=== PATIENT | female | born 1955 | race African-American/Black ===

== ENCOUNTER 2019-01-10 13:45 | Observation (INO) | payer OTHER ==
[2019-01-10] MEDS ORDERED: IPRATROPIUM/ALBUTEROL 0.5-2.5 MG/3 ML AMPUL NEB ONE (14:23)
[2019-01-10 14:27] LABS: ABSOLUTE BASOPHILS # (AUTO) 0.1 10^3/uL (0.0-0.2); ABSOLUTE EOSINOPHILS # (AUTO) 0.1 10^3/uL (0.0-0.6); ABSOLUTE LYMPHOCYTES (AUTO) 2.6 10^3/uL (0.5-4.7); ABSOLUTE MONOCYTES (AUTO) 0.7 10^3/uL (0.1-1.4); ABSOLUTE NEUT (AUTO) 5.4 10^3/uL (1.7-8.2); EOSINOPHILS % (AUTO) 0.8 % (0-6); HEMATOCRIT 50.1 % (36.0-47.0); HEMOGLOBIN 15.9 g/dL (12.0-15.5); LYMPHOCYTES % (AUTO) 29.3 % (13-45); MEAN CORPUSCULAR HEMOGLOBIN 28.6 pg (27.0-33.4); MEAN CORPUSCULAR HGB CONC 31.8 g/dL (32.0-36.0); MEAN CORPUSCULAR VOLUME 90 fl (80-97); MONOCYTES % (AUTO) 7.5 % (3-13); PLATELET COUNT 206 10^3/uL (150-450); RED BLOOD COUNT 5.57 10^6/uL (3.72-5.28); RED CELL DISTRIBUTION WIDTH 15.4 % (11.5-14.0); SEGMENTED NEUTROPHILS % (AUTO) 61.4 % (42-78); TOTAL CELLS COUNTED % (AUTO) 100 %; WHITE BLOOD COUNT 8.8 10^3/uL (4.0-10.5)
[2019-01-10 14:46] LABS: INTERNATIONAL RATION (INR) 1.18; PROTHROMBIN TIME 15.1 SEC (11.4-15.4)
--- NOTE | 2019-01-10 15:31 | RADIOLOGY REPORT (SQ) ---
EXAM DESCRIPTION: CHEST SINGLE VIEW COMPLETED DATE/TIME: 01/10/2019 2:44 pm REASON FOR STUDY: SOB COMPARISON: None. EXAM PARAMETERS: NUMBER OF VIEWS: One view. TECHNIQUE: Single frontal radiographic view of the chest acquired. RADIATION DOSE: NA LIMITATIONS: None. FINDINGS: LUNGS AND PLEURA: Asymmetric alveolar opacities in the right base. There is no sizable pl eural effusion, consolidation or pneumothorax. MEDIASTINUM AND HILAR STRUCTURES: No mediastinal or hilar contour abnormality. HEART AND VASCULAR STRUCTURES: The cardiac silhouette is enlarged. The pulmonary vasculature is with in normal limits given the low inspiratory lung volumes. BONES: No acute findings. HARDWARE: None in the chest. OTHER: No other finding. IMPRESSION: 1. Asymmetric alveolar opacities in the right base. Correlate with clinical findings to exclude a right lower lobe pneumonia. 2. Cardiomegaly. TECHNICAL DOCUMENTATION: JOB ID: [id number] [employer]- All Rights Reserved Reading location - IP/workstation name: [email or web address]
[2019-01-10 15:58] LABS: ALBUMIN 1.6 g/dL (3.5-5.0); ALKALINE PHOSPHATASE 29 U/L (38-126); ASPARTATE AMINO TRANSFERASE 20 U/L (14-36); BILIRUBIN,DIRECT 0.1 mg/dL (0.0-0.4); BILIRUBIN,TOTAL 0.9 mg/dL (0.2-1.3); BLOOD UREA NITROGEN 15 mg/dL (7-20); CREATINE KINASE 175 U/L (30-135); GLUCOSE 91 mg/dL (75-110); TOTAL PROTEIN 3.5 g/dL (6.3-8.2)
[2019-01-10 16:09] LABS: CARBON DIOXIDE 15 mmol/L (22-30); CHLORIDE 124 mmol/L (98-107)
[2019-01-10 16:10] LABS: CREATINE KINASE MB 1.53 ng/mL (<4.55); NT PRO BNP 7670 pg/mL (5-900)
[2019-01-10 16:11] LABS: TROPONIN I < 0.012 ng/mL
[2019-01-10 16:28] LABS: CALCIUM 4.6 mg/dL (8.4-10.2); POTASSIUM 2.2 mmol/L (3.6-5.0)
[2019-01-10 16:29] LABS: ANION GAP 4 (5-19)
--- NOTE | 2019-01-10 16:30 | ER Document Report ---
ED General - General Chief Complaint: Shortness Of Breath Stated Complaint: SHORTNESS OF BREATH Time Seen by Provider: 01/10/19 13:58 Primary Care Provider: SHAD CASTELLON MD [Primary Care Provider] - Follow up as needed TRAVEL OUTSIDE OF THE [place] IN LAST 30 DAYS: No - HPI Notes: Patient is a very difficult historian. I asked her initially how long she is been short of breath. She states to me that it is been "since ." She denies any coughing. She states she is been short of breath for some time, we really will not qualify this further for me. She also states she has swelling in her legs. I asked her to qualify that for me. She goes on to tell me that she believes that some of her swelling might be from interactions from her medications. I pull out her bag of medications, but the patient admits that she is really not taking all of them. She states that her physician, who was in the [place] in [place], told her that once her cholesterol was down, she could stop her atorvastatin. She states she is only intermittently taking most of her medications. She does state that she feels weak all over. - Related Data Allergies/Adverse Reactions: No Known Allergies Allergy (Unverified 01/10/19 14:00) Past Medical History - General Information source: Patient - Social History Smoking Status: Current Every Day Smoker Chew tobacco use (# tins/day): No Frequency of alcohol use: None Drug Abuse: None Family History: Reviewed & Not Pertinent Patient has suicidal ideation: No Patient has homicidal ideation: No - Past Medical History Cardiac Medical History: Reports: Hx Hypercholesterolemia, Hx Hypertension Endocrine Medical History: Reports: Hx Diabetes Mellitus Type 2 Review of Systems - Review of Systems Constitutional: See HPI EENT: No symptoms reported Cardiovascular: See HPI Respiratory: See HPI Gastrointestinal: No symptoms reported Genitourinary: No symptoms reported Female Genitourinary: No symptoms reported Musculoskeletal: See HPI Skin: No symptoms reported Neurological/Psychological: No symptoms reported Physical Exam - Vital signs Vitals: Temp Resp BP Pulse Ox 97.6 F 30 H 134/111 H 94 01/10/19 14:07 01/10/19 14:07 01/10/19 14:07 01/10/19 14:07 - Notes Notes: This is a 63-year-old female who appears her stated age, no acute distress. She exhibits almost stream of consciousness thought, is difficult to pin down in regards to her history. Vital signs reviewed, please refer to chart. Head is normocephalic, atraumatic. Pupils equal round, reactive to light. Neck is supple without meningismus. Heart is regular rate and rhythm. Lungs are clear to auscultation bilaterally. Abdomen is soft, nontender, normoactive bowel sounds throughout. Extremities without cyanosis, clubbing. He does have 2+ pitting pretibial edema bilaterally. Posterior calves are nontender. Peripheral pulses are equal. Skin is warm and dry. Patient is awake, alert, neurological exam is nonfocal. Course - Re-evaluation Re-evalutation: 01/10/19 16:52 Patient presents emergency department for evaluation. She is an extremely difficult historian. She comes in complaining of dyspnea with exertion, shortness of breath with laying flat, as well as peripheral edema. I went through her medicine bag, she admits that she takes some of these medications, some of them she does not. While the medicine she supposed to take daily as torsemide. There is no torsemide and there. Given her laboratory investigations, which revealed a marked hypokalemia, a marked hypocalcemia, and a non-anion gap metabolic acidosis, my suspicion is that she is over taking her torsemide. I gave her oral potassium, potassium riders. Metabolic panel is being repeated, magnesium is being ordered. I am not inclined to treat her congestive heart failure with Lasix at this time, as I do not want to worsen her electrolyte abnormalities. She was mildly hypoxic on arrival for EMS, but only 89%. I spoke with Dr. Damian, who agrees this patient needs admission. He will pass this admission along to Dr. Marquez. - Vital Signs Vital signs: Temp Pulse Resp BP Pulse Ox 97.6 F 30 H 134/111 H 94 01/10/19 14:07 01/10/19 14:07 01/10/19 14:07 01/10/19 14:07 - Laboratory Result Diagrams: 01/10/19 14:03 01/10/19 15:23 Laboratory results interpreted by me: 01/10/19 01/10/19 01/10/19 14:03 15:23 15:23 RBC 5.57 H Hgb 15.9 H Hct 50.1 H MCHC 31.8 L RDW 15.4 H Potassium 2.2 L* Chloride 124 H Carbon Dioxide 15 L Anion Gap 4 L Creatinine 0.46 L Calcium 4.6 L* Alkaline Phosphatase 29 L Creatine Kinase 175 H NT-Pro-B Natriuret Pep 7670 H Total Protein 3.5 L Albumin 1.6 L - Diagnostic Test Radiology reviewed: Reports reviewed Radiology results interpreted by me: 01/10/19 16:53 Chest X-Ray 01/10/19 13:50 IMPRESSION: 1. Asymmetric alveolar opacities in the right base. Correlate with clinical findings to exclude a right lower lobe pneumonia. 2. Cardiomegaly. - EKG Interpretation by Me Additional EKG results interpreted by me: 01/10/19 16:53 Sinus mechanism with a rate of 93 bpm, PVC noted. Left bundle branch block. No old studies available for comparison. Discharge - Discharge Clinical Impression: Hypokalemia, Hypocalcemia, Metabolic acidosis Condition: Stable Disposition: ADMITTED INPATIENT Admitting Provider: Alma (Hospitalist) Unit Admitted: IMCU Referrals: SHAD CASTELLON MD [Primary Care Provider] - Follow up as needed
[2019-01-10] MEDS ORDERED: CALCIUM GLUCONATE 1000 MG/10 ML INJ IV ONE (16:48)
[2019-01-10] MEDS ORDERED: POTASSIUM CHLORIDE 10 MEQ CAPSULE.ER PO ONE (16:48)
[2019-01-10] MEDS ORDERED: POTASSI CL 20 MEQ/50 ML RIDER 20 MEQ/50 ML RTUPB IV SCH (17:00)
[2019-01-10 17:19] LABS: ALBUMIN 3.5 g/dL (3.5-5.0); ALKALINE PHOSPHATASE 74 U/L (38-126); ASPARTATE AMINO TRANSFERASE 34 U/L (14-36); BILIRUBIN,DIRECT 0.1 mg/dL (0.0-0.4); BILIRUBIN,TOTAL 1.7 mg/dL (0.2-1.3); BLOOD UREA NITROGEN 25 mg/dL (7-20); CALCIUM 9.3 mg/dL (8.4-10.2); CHLORIDE 106 mmol/L (98-107); GLUCOSE 131 mg/dL (75-110); TOTAL PROTEIN 6.5 g/dL (6.3-8.2)
[2019-01-10 17:38] LABS: ANION GAP 10 (5-19)
[2019-01-10 17:39] LABS: CARBON DIOXIDE 25 mmol/L (22-30); POTASSIUM 4.2 mmol/L (3.6-5.0)
[2019-01-10] MEDS ORDERED: ACETAMINOPHEN 325 MG TABLET PO PRN (17:42)
[2019-01-10] MEDS ORDERED: ONDANSETRON HCL INJ/PF 4 MG/2 ML SDV IV PRN (17:42)
[2019-01-10] MEDS ORDERED: CEFTRIAXONE 2 GM/D5W RTU 2 GM/50 ML RTUPB IV ONE (17:51)
[2019-01-10] MEDS ORDERED: DEXTROSE 50%-WATER 25 GM/50 ML DISP.SYRIN IV PRN ×2 (17:52)
[2019-01-10] MEDS ORDERED: DEXTROSE 40% GEL 15 GM TUBE PO PRN ×2 (17:52)
[2019-01-10] MEDS ORDERED: GLUCAGON,HUMAN RECOMB 1 MG INJ IM PRN (17:52)
[2019-01-10] MEDS ORDERED: HYDRALAZINE HCL INJ/PF 20 MG/1 ML SDV IV PRN (17:55)
[2019-01-10] MEDS ORDERED: FUROSEMIDE INJ/PF 40 MG/4 ML SDV IV ONE (17:56)
[2019-01-10] MEDS ORDERED: MAGNESIUM SULFATE/D5W 1 GM/100 ML RTUPB IV ONE ×2 (17:56→21:23)
--- NOTE | 2019-01-10 18:15 | EKG REPORT ---
SEVERITY:- ABNORMAL ECG - SINUS RHYTHM VENTRICULAR PREMATURE COMPLEX RASHEED, CONSIDER BIATRIAL ABNORMALITIES LEFT ANTERIOR FASCICULAR BLOCK LVH. : Confirmed by: Kimani Sullivan MD 10-Jan-2019 18:14:48
--- NOTE | 2019-01-10 18:49 | PDOC H&P ---
History of Present Illness Admission Date/PCP: 01/10/19 18:21 SHAD CASTELLON MD Patient complains of: Shortness of breath for the last few days History of Present Illness: LISA RUFF is a 63 year old female with history of type 2 diabetes mellitus, cardiomyopathy, hypertension came to the emergency room with complaints of increasing shortness of breath. Shortness of breath is not associated with chest pain not associated with cough not associated cold. Denies any nausea vomiting diarrhea or abdominal pain. Patient says she is fasting for the last 4 to 5 days for unknown reasons. Patient states she is compliant with her medications. She was also telling me she flew in from [place] 2 days ago. Agreed to stay in the hospital for further management. Past Medical History Cardiac Medical History: Reports: Congestive Heart Failure, Hyperlipidema, Hypertension Endocrine Medical History: Reports: Diabetes Mellitus Type 2 Past Surgical History Past Surgical History: Reports: None Social History Information Source: Patient Smoking Status: Current Every Day Smoker Electronic Cigarette use?: No Frequency of Alcohol Use: Occasional Hx Recreational Drug Use: No Hx Prescription Drug Abuse: No - Advance Directive Resuscitation Status: Full Code Family History Family History: Reviewed & Not Pertinent Parental Family History Reviewed: Yes - Diet with history of artery disease and hypertension. Children Family History Reviewed: Yes Sibling(s) Family History Reviewed.: Yes Medication/Allergy Allergies/Adverse Reactions: No Known Allergies Allergy (Unverified 01/10/19 14:00) Review of Systems Constitutional: ABSENT: fatigue, fever(s), headache(s), weakness Eyes: ABSENT: visual disturbances Ears: ABSENT: hearing changes Nose, Mouth, and Throat: ABSENT: sore throat Cardiovascular: PRESENT: dyspnea on exertion, edema Respiratory: PRESENT: dyspnea. ABSENT: cough, sputum Gastrointestinal: ABSENT: abdominal pain, constipation, diarrhea, hematemesis, hematochezia, nausea, vomiting Genitourinary: ABSENT: dysuria, hematuria Musculoskeletal: ABSENT: joint swelling Integumentary: ABSENT: rash, wounds Neurological: PRESENT: as per HPI Psychiatric: ABSENT: anxiety, depression, homidical ideation, suicidal ideation Endocrine: ABSENT: cold intolerance, heat intolerance, polydipsia, polyuria Physical Exam Vital Signs: Temp Pulse Resp BP Pulse Ox 97.6 F 30 H 134/111 H 94 01/10/19 14:07 01/10/19 14:07 01/10/19 14:07 01/10/19 14:07 Intake & Output 01/09/19 01/10/19 01/11/19 06:59 06:59 06:59 Weight 102 kg General appearance: PRESENT: morbidly obese, other - In moderate distress. Head exam: PRESENT: atraumatic Eye exam: PRESENT: PERRLA Mouth exam: PRESENT: neck supple Teeth exam: PRESENT: poor dentation Neck exam: PRESENT: JVD Respiratory exam: PRESENT: decreased breath sounds Cardiovascular exam: PRESENT: tachycardia GI/Abdominal exam: PRESENT: normal bowel sounds, soft. ABSENT: distended, guarding, mass, organolmegaly, rebound, tenderness Rectal exam: PRESENT: deferred Extremities exam: PRESENT: pedal edema Musculoskeletal exam: PRESENT: ambulatory Neurological exam: PRESENT: alert, awake, oriented to person, oriented to place, oriented to time, oriented to situation, CN II-XII grossly intact. ABSENT: motor sensory deficit Psychiatric exam: PRESENT: anxious Results Laboratory Results: 01/10/19 14:03 01/10/19 16:43 01/10/19 01/10/19 01/10/19 14:03 14:03 15:23 WBC 8.8 RBC 5.57 H Hgb 15.9 H Hct 50.1 H MCV 90 MCH 28.6 MCHC 31.8 L RDW 15.4 H Plt Count 206 Seg Neutrophils % 61.4 Sodium Cancelled 142.9 Potassium Cancelled 2.2 L* Chloride Cancelled 124 H Carbon Dioxide Cancelled 15 L Anion Gap Cancelled 4 L BUN Cancelled 15 Creatinine Cancelled 0.46 L Est GFR ( Amer) Cancelled > 60 Est GFR (Non-Af Amer) Cancelled Glucose Cancelled 91 Calcium Cancelled 4.6 L* Magnesium Total Bilirubin Cancelled 0.9 AST Cancelled 20 Alkaline Phosphatase Cancelled 29 L Total Protein Cancelled 3.5 L Albumin Cancelled 1.6 L 01/10/19 16:43 WBC RBC Hgb Hct MCV MCH MCHC RDW Plt Count Seg Neutrophils % Sodium 140.8 Potassium 4.2 D Chloride 106 Carbon Dioxide 25 D Anion Gap 10 BUN 25 H Creatinine 0.90 Est GFR ( Amer) > 60 Est GFR (Non-Af Amer) Glucose 131 H Calcium 9.3 Magnesium 1.6 Total Bilirubin 1.7 H AST 34 Alkaline Phosphatase 74 Total Protein 6.5 Albumin 3.5 01/10/19 01/10/19 01/10/19 14:00 14:00 15:23 Creatine Kinase Cancelled 175 H CK-MB (CK-2) Cancelled Troponin I Cancelled NT-Pro-B Natriuret Pep Cancelled 01/10/19 15:23 Creatine Kinase CK-MB (CK-2) 1.53 Troponin I < 0.012 NT-Pro-B Natriuret Pep 7670 H Impressions: Chest X-Ray 01/10/19 13:50 IMPRESSION: 1. Asymmetric alveolar opacities in the right base. Correlate with clinical findings to exclude a right lower lobe pneumonia. 2. Cardiomegaly. 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 Patient also history of congestive heart failure. Plan to put her in IMCU she is a full code. Admitting as inpatient. Blood cultures and urine cultures are requested CT of the chest was requested to get further information about pneumonia and and to rule out pulmonary embolism. At this moment patient is refusing the CT of the chest. GI prophylaxis DVT prophylaxis initiated. Started on insulin sliding scale aCHS. Dietary consult will be requested. Plan to restart her home medications. To give Lasix 40 mg IV 1 dose. PRN BiPAP. Placed on oxygen 2 L nasal cannula. To give Xopenex nebulizations. shortness of breath may be secondary to pneumonia. 2.hypertension Patient might have hypertensive urgency blood pressure is 134/111. Patient s zoeyes she has borderline hypertension. Plan to start her on hydralazine 20 mg IV every 6 PRN for systolic blood pressure more than 160. To give Lasix 40 mg IV 1 dose and restart on torsemide 20 mg p.o. daily. To check the blood pressures every shift. 3.type 2 diabetes mellitus It is giving the history of type 2 diabetes mellitus but she is not on any medications at home. To check hemoglobin A1c in the morning and check blood sugars before meals and at bedtime. Dietary consult will be requested. 4.pneumonia Chest x-ray suggestive of possible right lower lobe pneumonia. Blood cultures are requested started on IV antibiotic therapy. CT of the chest was requested for further information. Patient might have most likely community-acquired pneumonia gram-positive organisms may be responsible. 5.morbid obesity BMI is more than 41, diet exercise weight loss lifestyle modifications are discussed with the patient. Dietary consult will be requested. 6.cardiomyopathy Is given the history of cardiomyopathy chest x-ray shows cardiomegaly she is taking torsemide at home. BNP is elevated more than 7000. Torsemide is was reinitiated to give Lasix 40 mg IV 1 dose. To watch for the fluid overload. My opinion patient might have a chronic systolic heart failure. - Time Time Spent with patient: 25-34 minutes Medications reviewed and adjusted accordingly: Yes Anticipated discharge: Home
[2019-01-10 20:43] LABS: APPEARANCE,URINE SLIGHTLY-CLOUDY; BILIRUBIN,URINE NEGATIVE (NEGATIVE); COLOR,URINE YELLOW; GLUCOSE, URINE NEGATIVE (NEGATIVE); KETONES,URINE NEGATIVE (NEGATIVE); LEUKOCYTE ESTERASE,URINE NEGATIVE (NEGATIVE); NITRITE,URINE NEGATIVE (NEGATIVE); PROTEIN,URINE 100 mg/dL (NEGATIVE); URINE SPECIFIC GRAVITY 1.009; UROBILINOGEN,URINE NEGATIVE mg/dL (<2.0)
--- NOTE | 2019-01-10 21:24 | RADIOLOGY REPORT (SQ) ---
CT CHEST ANGIOGRAPHY WITHOUT THEN WITH IV CONTRAST EXAM DATE: 01/10/2019 12:00 AM CDT HISTORY: Shortness of breath. COMPARISON: None. TECHNIQUE: CT angiogram of the chest with IV contrast. 3-D MIP images were obtained in coronal and sagittal reconstructions. This exam was performed according to our departmental dose-optimization program, which includes automated exposure control, adjustment of the mA and/or kV according to patient size and/or use of iterative reconstruction technique. FINDINGS: No filling defects are seen in the pulmonary trunk or the left and right main pulmonary artery. There is limited evaluation of the segmental branches due to motion artifact. The thyroid gland is normal. No mediastinal or hilar adenopathy. The heart size is mildly enlarged without pericardial effusion. The thoracic aorta is normal caliber. No consolidation, pleural effusion, or pneumothorax is identified. The visualized upper abdomen demonstrates no acute findings. No acute osseous findings are seen. IMPRESSION: No central pulmonary embolism.
[2019-01-10] MEDS: AZITHROMYCIN 500 MG in DEXTROSE 5%-WATER 250 ML IV SCH (23:02)
[2019-01-10] MEDS: INSULIN REG, HUMAN 100 UNIT/ML 3 ML VIAL (PYX) SUBCUT SCH (23:02)
[2019-01-11] MEDS: LEVALBUTEROL HCL NEB 0.63 MG/3 ML AMPUL NEB PRN ×2 (02:37→10:42)
[2019-01-11] MEDS: PANTOPRAZOLE SODIUM 40 MG TABLET.DR PO SCH ×2 (06:11→17:35)
[2019-01-11] MEDS: TORSEMIDE 20 MG TABLET PO SCH (09:35)
[2019-01-11] MEDS: ASPIRIN 325 MG TABLET, ENT COATED PO SCH (09:35)
[2019-01-11] MEDS: INSULIN REG, HUMAN 100 UNIT/ML 3 ML VIAL (PYX) SUBCUT SCH ×4 (09:35→21:19)
[2019-01-11] MEDS: ENOXAPARIN SODIUM INJ 40 MG/0.4 ML DISP.SYRIN SUBCUT SCH (09:35)
[2019-01-11] MEDS: POTASSIUM CHLORIDE 10 MEQ CAPSULE.ER PO SCH (09:35)
[2019-01-11] MEDS: ATORVASTATIN CALCIUM 80 MG TABLET PO SCH (09:35)
[2019-01-11] MEDS: METOPROLOL SUCCINATE 25 MG TAB.SR.24H PO SCH ×2 (09:35→21:11)
[2019-01-11] MEDS ORDERED: LISINOPRIL 10 MG TABLET PO SCH (10:00)
[2019-01-11] MEDS ORDERED: AZITHROMYCIN INJ 500 MG VIAL IV SCH (10:00)
[2019-01-11 11:20] LABS: ABSOLUTE EOSINOPHILS # (AUTO) 0.1 10^3/uL (0.0-0.6); ABSOLUTE MONOCYTES (AUTO) 0.6 10^3/uL (0.1-1.4); ABSOLUTE NEUT (AUTO) 5.9 10^3/uL (1.7-8.2); BASOPHILS % (AUTO) 0.5 % (0-2); EOSINOPHILS % (AUTO) 1.2 % (0-6); HEMATOCRIT 47.2 % (36.0-47.0); HEMOGLOBIN 15.1 g/dL (12.0-15.5); LYMPHOCYTES % (AUTO) 23.4 % (13-45); MEAN CORPUSCULAR HEMOGLOBIN 28.7 pg (27.0-33.4); MEAN CORPUSCULAR VOLUME 90 fl (80-97); MONOCYTES % (AUTO) 6.9 % (3-13); PLATELET COUNT 166 10^3/uL (150-450); RED BLOOD COUNT 5.27 10^6/uL (3.72-5.28); RED CELL DISTRIBUTION WIDTH 14.8 % (11.5-14.0); TOTAL CELLS COUNTED % (AUTO) 100 %; WHITE BLOOD COUNT 8.6 10^3/uL (4.0-10.5)
[2019-01-11 11:26] LABS: INTERNATIONAL RATION (INR) 1.25; PROTHROMBIN TIME 15.8 SEC (11.4-15.4)
[2019-01-11 11:46] LABS: ALBUMIN 3.5 g/dL (3.5-5.0); ALKALINE PHOSPHATASE 80 U/L (38-126); ANION GAP 10 (5-19); ASPARTATE AMINO TRANSFERASE 36 U/L (14-36); BILIRUBIN,DIRECT 0.2 mg/dL (0.0-0.4); BILIRUBIN,TOTAL 0.9 mg/dL (0.2-1.3); BLOOD UREA NITROGEN 28 mg/dL (7-20); CARBON DIOXIDE 26 mmol/L (22-30); CHLORIDE 103 mmol/L (98-107); CHOLESTEROL 112.97 mg/dL (0-200); CREATINE KINASE 285 U/L (30-135); GLUCOSE 201 mg/dL (75-110); POTASSIUM 4.1 mmol/L (3.6-5.0); TOTAL PROTEIN 6.5 g/dL (6.3-8.2); TRIGLYCERIDES 64 mg/dL (<150)
[2019-01-11 11:53] LABS: CREATINE KINASE MB 2.6 ng/mL (<4.55)
[2019-01-11 11:57] LABS: DIRECT LDL 98 mg/dL (<100)
--- NOTE | 2019-01-11 12:00 | PDOC PROGRESS REPORT ---
Subjective Progress Note for:: 01/11/19 Subjective:: 63 year old female with history of type 2 diabetes mellitus, cardiomyopathy, hypertension came to the emergency room with complaints of increasing shortness of breath. Shortness of breath is not associated with chest pain not associated with cough not associated cold. Denies any nausea vomiting diarrhea or abdominal pain. Patient says she is fasting for the last 4 to 5 days for unknown reasons. Patient states she is compliant with her medications. She was also telling me she flew in from [place] 2 days ago. Agreed to stay in the hospital for further management. [id number] female admitted for shortness of breath. Chest x-ray suggestive of possible pneumonia. CT of the chest was done PE is ruled out. No fluid overload is noticed on CT. Patient's pulse ox is this morning 95% on 4 L. Comfortably sleeping in the bed. No acute events in the last 24 hours. Reason For Visit: CHF Physical Exam Vital Signs: Temp Pulse Resp BP Pulse Ox 97.7 F 85 14 125/97 H 97 01/11/19 03:13 01/11/19 10:42 01/11/19 10:42 01/11/19 03:13 01/11/19 10:42 Intake & Output 01/10/19 01/11/19 01/12/19 06:59 06:59 06:59 Intake Total 400 Balance 400 Weight 98.6 kg General appearance: PRESENT: no acute distress, morbidly obese Head exam: PRESENT: atraumatic Eye exam: PRESENT: PERRLA Mouth exam: PRESENT: moist, tongue midline Teeth exam: PRESENT: poor dentation Neck exam: ABSENT: carotid bruit, JVD, lymphadenopathy, thyromegaly Respiratory exam: PRESENT: decreased breath sounds Cardiovascular exam: PRESENT: RRR. ABSENT: diastolic murmur, rubs, systolic murmur GI/Abdominal exam: PRESENT: normal bowel sounds, soft. ABSENT: distended, guarding, mass, organolmegaly, rebound, tenderness Rectal exam: PRESENT: deferred Extremities exam: PRESENT: full ROM. ABSENT: calf tenderness, clubbing, pedal edema Neurological exam: PRESENT: alert, awake, oriented to person, oriented to place, oriented to time, oriented to situation, CN II-XII grossly intact. ABSENT: motor sensory deficit Psychiatric exam: PRESENT: appropriate affect, normal mood. ABSENT: homicidal ideation, suicidal ideation Skin exam: PRESENT: dry, intact, warm. ABSENT: cyanosis, rash Results Laboratory Results: 01/11/19 10:40 01/10/19 01/10/19 01/10/19 14:03 14:03 15:23 WBC 8.8 RBC 5.57 H Hgb 15.9 H Hct 50.1 H MCV 90 MCH 28.6 MCHC 31.8 L RDW 15.4 H Plt Count 206 Seg Neutrophils % 61.4 Sodium Cancelled 142.9 Potassium Cancelled 2.2 L* Chloride Cancelled 124 H Carbon Dioxide Cancelled 15 L Anion Gap Cancelled 4 L BUN Cancelled 15 Creatinine Cancelled 0.46 L Est GFR ( Amer) Cancelled > 60 Est GFR (Non-Af Amer) Cancelled Glucose Cancelled 91 Calcium Cancelled 4.6 L* Magnesium Total Bilirubin Cancelled 0.9 AST Cancelled 20 Alkaline Phosphatase Cancelled 29 L Total Protein Cancelled 3.5 L Albumin Cancelled 1.6 L Urine Color Urine Appearance Urine pH Ur Specific [place] Urine Protein Urine Glucose (UA) Urine Ketones Urine Blood Urine Nitrite Ur Leukocyte Esterase Urine WBC (Auto) Urine RBC (Auto) 01/10/19 01/10/19 01/11/19 16:43 20:20 10:40 WBC 8.6 RBC 5.27 Hgb 15.1 Hct 47.2 H MCV 90 MCH 28.7 MCHC 32.0 RDW 14.8 H Plt Count 166 Seg Neutrophils % 68.0 Sodium 140.8 Potassium 4.2 D Chloride 106 Carbon Dioxide 25 D Anion Gap 10 BUN 25 H Creatinine 0.90 Est GFR ( Amer) > 60 Est GFR (Non-Af Amer) Glucose 131 H Calcium 9.3 Magnesium 1.6 Total Bilirubin 1.7 H AST 34 Alkaline Phosphatase 74 Total Protein 6.5 Albumin 3.5 Urine Color YELLOW Urine Appearance SLIGHTLY-CLOUDY Urine pH 6.0 Ur Specific [place] 1.009 Urine Protein 100 H Urine Glucose (UA) NEGATIVE Urine Ketones NEGATIVE Urine Blood NEGATIVE Urine Nitrite NEGATIVE Ur Leukocyte Esterase NEGATIVE Urine WBC (Auto) 1 Urine RBC (Auto) 0 01/10/19 01/10/19 01/10/19 14:00 14:00 15:23 Creatine Kinase Cancelled 175 H CK-MB (CK-2) Cancelled Troponin I Cancelled NT-Pro-B Natriuret Pep Cancelled 01/10/19 01/10/19 01/10/19 15:23 19:20 19:20 Creatine Kinase 315 H CK-MB (CK-2) 1.53 2.99 Troponin I < 0.012 NT-Pro-B Natriuret Pep 7670 H 01/11/19 01/11/19 01:12 01:12 Creatine Kinase 324 H CK-MB (CK-2) 2.48 Troponin I NT-Pro-B Natriuret Pep Impressions: Chest/Abdomen CTA 01/10/19 00:00 IMPRESSION: No central pulmonary embolism. Chest X-Ray 01/10/19 13:50 IMPRESSION: 1. Asymmetric alveolar opacities in the right base. Correlate with clinical findings to exclude a right lower lobe pneumonia. 2. Cardiomegaly. Assessment and Plan - Diagnosis (1) Shortness of breath Is this a current diagnosis for this admission?: Yes (2) Type 2 diabetes mellitus Qualifiers: Diabetes mellitus intermediate insulin use: without intermediate use Is this a current diagnosis for this admission?: Yes (3) Morbid obesity with BMI of 40.0-44.9, adult Is this a current diagnosis for this admission?: No (4) Pneumonia Is this a current diagnosis for this admission?: Yes - Plan Summary Summary: 1.shortness of breath Patient came in with acute on chronic shortness of breath chest x-ray suggestive of possible pneumonia. Patient also history of congestive heart failure. Plan to put her in IMCU she is a full code. Admitting as inpatient. Blood cultures and urine cultures are requested CT of the chest was requested to get further information about pneumonia and and to rule out pulmonary embolism. At this moment patient is refusing the CT of the chest. GI prophylaxis DVT prophylaxis initiated. Started on insulin sliding scale aCHS. Dietary consult will be requested. Plan to restart her home medications. To give Lasix 40 mg IV 1 dose. PRN BiPAP. Placed on oxygen 2 L nasal cannula. To give Xopenex nebulizations. shortness of breath may be secondary to pneumonia. 01/11/2019-shortness of breath is resolving. CT of the chest is negative for acute pathology. Pulse ox 95% 4 L. 2.hypertension Patient might have hypertensive urgency blood pressure is 134/111. Patient states she has borderline hypertension. Plan to start her on hydralazine 20 mg IV every 6 PRN for systolic blood pressure more than 160. To give Lasix 40 mg IV 1 dose and restart on torsemide 20 mg p.o. daily. To check the blood pressures every shift. 01/11/2019-patient blood pressure today is 125/97. Hypertensive urgency is resolved. 3.type 2 diabetes mellitus It is giving the history of type 2 diabetes mellitus but she is not on any medications at home. To check hemoglobin A1c in the morning and check blood sugars before meals and at bedtime. Dietary consult will be requested. 01/11/2019-type 2 diabetes mellitus patient latest blood sugar is 236, hemoglobin A1c 7.9. Patient is a diabetic. Dietary consult will be requested. 4.pneumonia Chest x-ray suggestive of possible right lower lobe pneumonia. Blood cultures are requested started on IV antibiotic therapy. CT of the chest was requested for further information. Patient might have most likely community-acquired pneumonia gram-positive organisms may be responsible. 01/11/2019-initial chest x-ray suggestive of right lower lobe pneumonia CTA of the chest ruled out pneumonia. 5.morbid obesity BMI is more than 41, diet exercise weight loss lifestyle modifications are discussed with the patient. Dietary consult will be requested. 6.cardiomyopathy Is given the history of cardiomyopathy chest x-ray shows cardiomegaly she is taking torsemide at home. BNP is elevated more than 7000. Torsemide is was reinitiated to give Lasix 40 mg IV 1 dose. To watch for the fluid overload. My opinion patient might have a chronic systolic heart failure. 01/11/2019-patient came in with bilateral lower leg edema, elevated BNP and cardiomegaly. Patient given the history of cardiomyopathy. On torsemide 20 mg p.o. daily. 1 dose of IV Lasix was given yesterday. To watch for the fluid overload.
[2019-01-11] MEDS: AZITHROMYCIN 500 MG in DEXTROSE 5%-WATER 250 ML IV SCH (21:11)
[2019-01-11] MEDS ORDERED: ATORVASTATIN CALCIUM 20 MG TABLET PO SCH (22:00)
[2019-01-12] MEDS: LEVALBUTEROL HCL NEB 0.63 MG/3 ML AMPUL NEB PRN ×2 (01:56→10:39)
[2019-01-12] MEDS: PANTOPRAZOLE SODIUM 40 MG TABLET.DR PO SCH ×2 (05:32→16:25)
[2019-01-12] MEDS: INSULIN REG, HUMAN 100 UNIT/ML 3 ML VIAL (PYX) SUBCUT SCH ×4 (08:44→21:27)
[2019-01-12 09:20] LABS: ABSOLUTE BASOPHILS # (AUTO) 0.1 10^3/uL (0.0-0.2); ABSOLUTE EOSINOPHILS # (AUTO) 0.2 10^3/uL (0.0-0.6); ABSOLUTE LYMPHOCYTES (AUTO) 2.8 10^3/uL (0.5-4.7); ABSOLUTE MONOCYTES (AUTO) 0.6 10^3/uL (0.1-1.4); ABSOLUTE NEUT (AUTO) 5.4 10^3/uL (1.7-8.2); BASOPHILS % (AUTO) 0.7 % (0-2); EOSINOPHILS % (AUTO) 1.8 % (0-6); HEMATOCRIT 47.2 % (36.0-47.0); HEMOGLOBIN 15.1 g/dL (12.0-15.5); LYMPHOCYTES % (AUTO) 30.8 % (13-45); MEAN CORPUSCULAR HEMOGLOBIN 28.7 pg (27.0-33.4); MEAN CORPUSCULAR VOLUME 90 fl (80-97); MONOCYTES % (AUTO) 6.2 % (3-13); PLATELET COUNT 169 10^3/uL (150-450); RED BLOOD COUNT 5.26 10^6/uL (3.72-5.28); RED CELL DISTRIBUTION WIDTH 15.3 % (11.5-14.0); SEGMENTED NEUTROPHILS % (AUTO) 60.5 % (42-78); TOTAL CELLS COUNTED % (AUTO) 100 %
[2019-01-12 09:42] LABS: ALBUMIN 3.3 g/dL (3.5-5.0); ALKALINE PHOSPHATASE 74 U/L (38-126); ANION GAP 8 (5-19); ASPARTATE AMINO TRANSFERASE 34 U/L (14-36); BILIRUBIN,DIRECT 0.2 mg/dL (0.0-0.4); BILIRUBIN,TOTAL 0.9 mg/dL (0.2-1.3); BLOOD UREA NITROGEN 29 mg/dL (7-20); CALCIUM 9.1 mg/dL (8.4-10.2); CARBON DIOXIDE 28 mmol/L (22-30); CHLORIDE 103 mmol/L (98-107); GLUCOSE 194 mg/dL (75-110); POTASSIUM 4.3 mmol/L (3.6-5.0); TOTAL PROTEIN 6.2 g/dL (6.3-8.2)
--- NOTE | 2019-01-12 09:55 | PDOC PROGRESS REPORT ---
Subjective Progress Note for:: 01/12/19 Subjective:: 63 year old female with history of type 2 diabetes mellitus, cardiomyopathy, hypertension came to the emergency room with complaints of increasing shortness of breath. Shortness of breath is not associated with chest pain not associated with cough not associated cold. Denies any nausea vomiting diarrhea or abdominal pain. Patient says she is fasting for the last 4 to 5 days for unknown reasons. Patient states she is compliant with her medications. She was also telling me she flew in from [place] 2 days ago. Agreed to stay in the hospital for further management. 01/[id number]-lrvk-old female admitted for shortness of breath. Chest x-ray suggestive of possible pneumonia. CT of the chest was done PE is ruled out. No fluid overload is noticed on CT. Patient's pulse ox is this morning 95% on 4 L. Comfortably sleeping in the bed. No acute events in the last 24 hours. 01/12/2019-no acute events in the last 24 hours. Patient is afebrile. Blood pr essure is running low and lisinopril was discontinued. Able to do the stress test today because patient unable to lie flat. Plan to check for home oxygen needs if he meets the criteria she will go home on portable oxygen. Reason For Visit: CHF Physical Exam Vital Signs: Temp Pulse Resp BP Pulse Ox 97.5 F 89 20 97/66 L 90 L 01/12/19 03:51 01/12/19 07:00 01/12/19 03:51 01/12/19 03:51 01/12/19 03:51 Intake & Output 01/11/19 01/12/19 01/13/19 06:59 06:59 06:59 Intake Total 400 1080 Output Total 1900 Balance 400 -820 Weight 98.6 kg 99.6 kg General appearance: PRESENT: no acute distress, obese Head exam: PRESENT: atraumatic Eye exam: PRESENT: PERRLA Mouth exam: PRESENT: moist, tongue midline Teeth exam: PRESENT: poor dentation Neck exam: ABSENT: carotid bruit, JVD, lymphadenopathy, thyromegaly Respiratory exam: PRESENT: decreased breath sounds Cardiovascular exam: PRESENT: RRR. ABSENT: diastolic murmur, rubs, systolic murmur GI/Abdominal exam: PRESENT: normal bowel sounds, soft. ABSENT: distended, guarding, mass, organolmegaly, rebound, tenderness Rectal exam: PRESENT: deferred Extremities exam: PRESENT: full ROM. ABSENT: calf tenderness, clubbing, pedal edema Neurological exam: PRESENT: alert, awake, oriented to person, oriented to place, oriented to time, oriented to situation, CN II-XII grossly intact. ABSENT: motor sensory deficit Psychiatric exam: PRESENT: appropriate affect, normal mood. ABSENT: homicidal ideation, suicidal ideation Results Laboratory Results: 01/12/19 08:37 01/12/19 08:37 01/11/19 01/11/19 01/11/19 10:40 10:40 10:40 WBC 8.6 RBC 5.27 Hgb 15.1 Hct 47.2 H MCV 90 MCH 28.7 MCHC 32.0 RDW 14.8 H Plt Count 166 Seg Neutrophils % 68.0 Sodium 138.8 Potassium 4.1 Chloride 103 Carbon Dioxide 26 Anion Gap 10 BUN 28 H Creatinine 0.84 Est GFR ( Amer) > 60 Glucose 201 H Calcium 9.0 Magnesium 2.0 Total Bilirubin 0.9 AST 36 Alkaline Phosphatase 80 Total Protein 6.5 Albumin 3.5 Triglycerides 64 Cholesterol 112.97 LDL Cholesterol Direct 98 VLDL Cholesterol 13.0 HDL Cholesterol 20 L TSH 0.24 L 01/12/19 01/12/19 08:37 08:37 WBC 9.0 RBC 5.26 Hgb 15.1 Hct 47.2 H MCV 90 MCH 28.7 MCHC 32.0 RDW 15.3 H Plt Count 169 Seg Neutrophils % 60.5 Sodium 139.2 Potassium 4.3 Chloride 103 Carbon Dioxide 28 Anion Gap 8 BUN 29 H Creatinine 0.88 Est GFR ( Amer) > 60 Glucose 194 H Calcium 9.1 Magnesium 1.9 Total Bilirubin 0.9 AST 34 Alkaline Phosphatase 74 Total Protein 6.2 L Albumin 3.3 L Triglycerides Cholesterol LDL Cholesterol Direct VLDL Cholesterol HDL Cholesterol TSH 01/10/19 01/10/19 01/10/19 14:00 14:00 15:23 Creatine Kinase Cancelled 175 H CK-MB (CK-2) Cancelled Troponin I Cancelled NT-Pro-B Natriuret Pep Cancelled 01/10/19 01/10/19 01/10/19 15:23 19:20 19:20 Creatine Kinase 315 H CK-MB (CK-2) 1.53 2.99 Troponin I < 0.012 NT-Pro-B Natriuret Pep 7670 H 01/11/19 01/11/19 01/11/19 01:12 01:12 10:40 Creatine Kinase 324 H 285 H CK-MB (CK-2) 2.48 Troponin I NT-Pro-B Natriuret Pep 01/11/19 10:40 Creatine Kinase CK-MB (CK-2) 2.60 Troponin I NT-Pro-B Natriuret Pep 9520 H Impressions: Chest/Abdomen CTA 01/10/19 00:00 IMPRESSION: No central pulmonary embolism. Chest X-Ray 01/10/19 13:50 IMPRESSION: 1. Asymmetric alveolar opacities in the right base. Correlate with clinical findings to exclude a right lower lobe pneumonia. 2. Cardiomegaly. Assessment and Plan - Diagnosis (1) Shortness of breath Is this a current diagnosis for this admission?: Yes (2) Type 2 diabetes mellitus Qualifiers: Diabetes mellitus manager intermediate insulin use: without manager intermediate use Is this a current diagnosis for this admission?: Yes (3) Morbid obesity with BMI of 40.0-44.9, adult Is this a current diagnosis for this admission?: No (4) Pneumonia Is this a current diagnosis for this admission?: Yes - Plan Summary Summary: 1.shortness of breath Patient came in with acute on chronic shortness of breath chest x-ray suggestive of possible pneumonia. Patient also history of congestive heart failure. Plan to put her in IMCU she is a full code. Admitting as inpatient. Blood cultures and urine cultures are requested CT of the chest was requested to get further information about pneumonia and and to rule out pulmonary embolism. At this moment patient is refusing the CT of the chest. GI prophylaxis DVT prophylaxis initiated. Started on insulin sliding scale aCHS. Dietary consult will be requested. Plan to restart her home medications. To give Lasix 40 mg IV 1 dose. PRN BiPAP. Placed on oxygen 2 L nasal cannula. To give Xopenex nebulizations. shortness of breath may be secondary to pneumonia. 01/11/2019-shortness of breath is resolving. CT of the chest is negative for acute pathology. Pulse ox 95% 4 L. 01/12/2019-patient still continued to have shortness of breath. We are going to check with home oxygen needs. 2.hypertension Patient might have hypertensive urgency blood pressure is 134/111. Patient sta gladys she has borderline hypertension. Plan to start her on hydralazine 20 mg IV every 6 PRN for systolic blood pressure more than 160. To give Lasix 40 mg IV 1 dose and restart on torsemide 20 mg p.o. daily. To check the blood pressures every shift. 01/11/2019-patient blood pressure today is 125/97. Hypertensive urgency is resolved. 01/2019-patient blood pressure today is 97/66 to hold the lisinopril. 3.type 2 diabetes mellitus It is giving the history of type 2 diabetes mellitus but she is not on any medications at home. To check hemoglobin A1c in the morning and check blood sugars before meals and at bedtime. Dietary consult will be requested. 01/11/2019-type 2 diabetes mellitus patient latest blood sugar is 236, hemoglobin A1c 7.9. Patient is a diabetic. Dietary consult will be requested. 01/12/2019-patient's latest blood sugar is 133. On insulin sliding scale before meals and at bedtime. Patient may need to be discharged on p.o. medications for better management of the blood sugars. 4.pneumonia Chest x-ray suggestive of possible right lower lobe pneumonia. Blood cultures are requested started on IV antibiotic therapy. CT of the chest was requested for further information. Patient might have most likely community-acquired pneumonia gram-positive organisms may be responsible. 01/11/2019-initial chest x-ray suggestive of right lower lobe pneumonia CTA of the chest ruled out pneumonia. 5.morbid obesity BMI is more than 41, diet exercise weight loss lifestyle modifications are dis cussed with the patient. Dietary consult will be requested. 6.cardiomyopathy Is given the history of cardiomyopathy chest x-ray shows cardiomegaly she is taking torsemide at home. BNP is elevated more than 7000. Torsemide is was reinitiated to give Lasix 40 mg IV 1 dose. To watch for the fluid overload. My opinion patient might have a chronic systolic heart failure. 01/11/2019-patient came in with bilateral lower leg edema, elevated BNP and cardiomegaly. Patient given the history of cardiomyopathy. On torsemide 20 mg p.o. daily. 1 dose of IV Lasix was given yesterday. To watch for the fluid overload. 01/12/2019-BNP went up to 9500 patient is receiving torsemide. Placed on fluid restriction 1200 cc/day. Low-salt diet was advised. Because of the low blood pressures unable to give IV Lasix at this time. 1.hyponatremia Serum sodium today is 133. Hyponatremia secondary to diuretic therapy. - Time Time Spent with patient: 25-34 minutes Medications reviewed and adjusted accordingly: Yes Anticipated discharge: Home with Homehealth
[2019-01-12] MEDS: ATORVASTATIN CALCIUM 80 MG TABLET PO SCH (09:59)
[2019-01-12] MEDS: ASPIRIN 325 MG TABLET, ENT COATED PO SCH (09:59)
[2019-01-12] MEDS: TORSEMIDE 20 MG TABLET PO SCH (09:59)
[2019-01-12] MEDS: POTASSIUM CHLORIDE 10 MEQ CAPSULE.ER PO SCH (09:59)
[2019-01-12] MEDS: ENOXAPARIN SODIUM INJ 40 MG/0.4 ML DISP.SYRIN SUBCUT SCH (10:29)
[2019-01-13] MEDS: PANTOPRAZOLE SODIUM 40 MG TABLET.DR PO SCH ×2 (06:46→17:26)
[2019-01-13] MEDS ORDERED: FUROSEMIDE INJ/PF 40 MG/4 ML SDV IV ONE ×2 (07:34→09:45)
[2019-01-13] MEDS: INSULIN REG, HUMAN 100 UNIT/ML 3 ML VIAL (PYX) SUBCUT SCH ×4 (09:32→22:00)
--- NOTE | 2019-01-13 09:41 | PDOC PROGRESS REPORT ---
Subjective Progress Note for:: 01/13/19 Subjective:: 63 year old female with history of type 2 diabetes mellitus, cardiomyopathy, hypertension came to the emergency room with complaints of increasing shortness of breath. Shortness of breath is not associated with chest pain not associated with cough not associated cold. Denies any nausea vomiting diarrhea or abdominal pain. Patient says she is fasting for the last 4 to 5 days for unknown reasons. Patient states she is compliant with her medications. She was also telling me she flew in from [place] 2 days ago. Agreed to stay in the hospital for further management. 01/11/[id number]-yswe-old female admitted for shortness of breath. Chest x-ray suggestive of possible pneumonia. CT of the chest was done PE is ruled out. No fluid overload is noticed on CT. Patient's pulse ox is this morning 95% on 4 L. Comfortably sleeping in the bed. No acute events in the last 24 hours. 01/12/2019-no acute events in the last 24 hours. Patient is afebrile. Blood pr essure is running low and lisinopril was discontinued. Able to do the stress test today because patient unable to lie flat. Plan to check for home oxygen needs if he meets the criteria she will go home on portable oxygen. 01/13/2019-no acute events in the last 24 hours. Afebrile. Blood pressure this morning is 97/70. Presently on torsemide 20 mg p.o. daily. She gained 2 pounds since yesterday. Try to give her Lasix 40 mg IV 1 dose. pt waiting for [place] from [place] to go home with home oxygen. No acute events in the last 24 hours. Afebrile. Reason For Visit: CHF Physical Exam Vital Signs: Temp Pulse Resp BP Pulse Ox 97.7 F 91 28 H 97/68 L 100 01/13/19 08:33 01/13/19 08:33 01/13/19 08:33 01/13/19 08:33 01/13/19 08:33 Intake & Output 01/12/19 01/13/19 01/14/19 06:59 06:59 06:59 Intake Total 1080 840 Output Total 1900 Balance -820 840 Weight 99.6 kg 101.3 kg General appearance: PRESENT: no acute distress, morbidly obese Head exam: PRESENT: atraumatic Eye exam: PRESENT: PERRLA Mouth exam: PRESENT: neck supple Teeth exam: PRESENT: poor dentation Neck exam: PRESENT: tracheal deviation Respiratory exam: PRESENT: decreased breath sounds, prolonged expiratory phas Pulses: PRESENT: normal dorsalis pedis pul GI/Abdominal exam: PRESENT: normal bowel sounds, soft. ABSENT: distended, guarding, mass, organolmegaly, rebound, tenderness Rectal exam: PRESENT: deferred Extremities exam: PRESENT: +1 edema Neurological exam: PRESENT: alert, awake, oriented to person, oriented to place, oriented to time, oriented to situation, CN II-XII grossly intact. ABSENT: motor sensory deficit Results Laboratory Results: 01/12/19 08:37 01/12/19 08:37 01/12/19 08:37 Sodium 139.2 Potassium 4.3 Chloride 103 Carbon Dioxide 28 Anion Gap 8 BUN 29 H Creatinine 0.88 Est GFR ( Amer) > 60 Glucose 194 H Calcium 9.1 Magnesium 1.9 Total Bilirubin 0.9 AST 34 Alkaline Phosphatase 74 Total Protein 6.2 L Albumin 3.3 L 01/10/19 20:20 Clean Catch Midstream Urine Culture - Final Mixed Urogenital Yaritza 01/10/19 01/10/19 01/10/19 14:00 14:00 15:23 Creatine Kinase Cancelled 175 H CK-MB (CK-2) Cancelled Troponin I Cancelled NT-Pro-B Natriuret Pep Cancelled 01/10/19 01/10/19 01/10/19 15:23 19:20 19:20 Creatine Kinase 315 H CK-MB (CK-2) 1.53 2.99 Troponin I < 0.012 NT-Pro-B Natriuret Pep 7670 H 01/11/19 01/11/19 01/11/19 01:12 01:12 10:40 Creatine Kinase 324 H 285 H CK-MB (CK-2) 2.48 Troponin I NT-Pro-B Natriuret Pep 01/11/19 10:40 Creatine Kinase CK-MB (CK-2) 2.60 Troponin I NT-Pro-B Natriuret Pep 9520 H Impressions: Chest/Abdomen CTA 01/10/19 00:00 IMPRESSION: No central pulmonary embolism. Chest X-Ray 01/10/19 13:50 IMPRESSION: 1. Asymmetric alveolar opacities in the right base. Correlate with clinical findings to exclude a right lower lobe pneumonia. 2. Cardiomegaly. Assessment and Plan - Diagnosis (1) Shortness of breath Is this a current diagnosis for this admission?: Yes (2) Type 2 diabetes mellitus Qualifiers: Diabetes mellitus usp insulin use: without exterminator termite use Is this a current diagnosis for this admission?: Yes (3) Morbid obesity with BMI of 40.0-44.9, adult Is this a current diagnosis for this admission?: No (4) Pneumonia Is this a current diagnosis for this admission?: Yes - Plan Summary Summary: 1.shortness of breath Patient came in with acute on chronic shortness of breath chest x-ray suggestive of possible pneumonia. Patient also history of congestive heart failure. Plan to put her in IMCU she is a full code. Admitting as inpatient. Blood cultures and urine cultures are requested CT of the chest was requested to get further information about pneumonia and and to rule out pulmonary embolism. At this moment patient is refusing the CT of the chest. GI prophylaxis DVT prophylaxis initiated. Started on insulin sliding scale aCHS. Dietary consult will be requested. Plan to restart her home medications. To give Lasix 40 mg IV 1 dose. PRN BiPAP. Placed on oxygen 2 L nasal cannula. To give Xopenex nebulizations. shortness of breath may be secondary to pneumonia. 01/11/2019-shortness of breath is resolving. CT of the chest is negative for acute pathology. Pulse ox 95% 4 L. 01/12/2019-patient still continued to have shortness of breath. We are going to check with home oxygen needs. 01/13/2019-patient is still shortness of breath. On oxygen via nasal cannula. CT of the chest was negative for acute pathology. Waiting for approval from [place] for home oxygen needs. 2.hypertension Patient might have hypertensive urgency blood pressure is 134/111. Patient states she has borderline hypertension. Plan to start her on hydralazine 20 mg IV every 6 PRN for systolic blood pressure more than 160. To give Lasix 40 mg IV 1 dose and restart on torsemide 20 mg p.o. daily. To check the blood pressures every shift. 01/11/2019-patient blood pressure today is 125/97. Hypertensive urgency is resolved. 01/2019-patient blood pressure today is 97/66 to hold the lisinopril. 01/13/2019-patient is hypotensive this morning systolic blood pressure in the 90s. To check the blood pressure manually and if the blood pressure is more than systolic blood pressure more than 100 to give IV Lasix 1 dose and continue torsemide. She gained 2 pounds since yesterday. 3.type 2 diabetes mellitus It is giving the history of type 2 diabetes mellitus but she is not on any medications at home. To check hemoglobin A1c in the morning and check blood sugars before meals and at bedtime. Dietary consult will be requested. 01/11/2019-type 2 diabetes mellitus patient latest blood sugar is 236, hemoglobin A1c 7.9. Patient is a diabetic. Dietary consult will be requested. 01/12/2019-patient's latest blood sugar is 133. On insulin sliding scale before meals and at bedtime. Patient may need to be discharged on p.o. medications for better management of the blood sugars. 01/13/2019-patient blood sugar today is 93. Hemoglobin A1c 7.9. Plan is to continue insulin sliding scale before meals and at bedtime. 4.pneumonia Chest x-ray suggestive of possible right lower lobe pneumonia. Blood cultures are requested started on IV antibiotic therapy. CT of the chest was requested for further information. Patient might have most likely community-acquired pneumonia gram-positive organisms may be responsible. 01/11/2019-initial chest x-ray suggestive of right lower lobe pneumonia CTA of t he chest ruled out pneumonia. 5.morbid obesity BMI is more than 41, diet exercise weight loss lifestyle modifications are discussed with the patient. Dietary consult will be requested. 6.cardiomyopathy Is given the history of cardiomyopathy chest x-ray shows cardiomegaly she is taking torsemide at home. BNP is elevated more than 7000. Torsemide is was reinitiated to give Lasix 40 mg IV 1 dose. To watch for the fluid overload. My opinion patient might have a chronic systolic heart failure. 01/11/2019-patient came in with bilateral lower leg edema, elevated BNP and cardiomegaly. Patient given the history of cardiomyopathy. On torsemide 20 mg p.o. daily. 1 dose of IV Lasix was given yesterday. To watch for the fluid overload. 01/12/2019-BNP went up to 9500 patient is receiving torsemide. Placed on fluid restriction 1200 cc/day. Low-salt diet was advised. Because of the low blood pressures unable to give IV Lasix at this time. 02/2019-patient still have pedal edema. Gained 2 pounds since yesterday. Try to give Lasix 40 mg IV 1 dose but the blood pressures are running low today. 1.hyponatremia Serum sodium today is 133. Hyponatremia secondary to diuretic therapy. - Time Time Spent with patient: 25-34 minutes Anticipated discharge: Home
[2019-01-13] MEDS: ENOXAPARIN SODIUM INJ 40 MG/0.4 ML DISP.SYRIN SUBCUT SCH (10:05)
[2019-01-13] MEDS: TORSEMIDE 20 MG TABLET PO SCH (10:07)
[2019-01-13] MEDS: ASPIRIN 325 MG TABLET, ENT COATED PO SCH (10:07)
[2019-01-13] MEDS: ATORVASTATIN CALCIUM 80 MG TABLET PO SCH (10:07)
[2019-01-13] MEDS: POTASSIUM CHLORIDE 10 MEQ CAPSULE.ER PO SCH (10:07)
[2019-01-14 04:54] LABS: ABSOLUTE EOSINOPHILS # (AUTO) 0.1 10^3/uL (0.0-0.6); ABSOLUTE LYMPHOCYTES (AUTO) 2.4 10^3/uL (0.5-4.7); ABSOLUTE MONOCYTES (AUTO) 0.5 10^3/uL (0.1-1.4); ABSOLUTE NEUT (AUTO) 5.5 10^3/uL (1.7-8.2); BASOPHILS % (AUTO) 0.5 % (0-2); EOSINOPHILS % (AUTO) 1.4 % (0-6); HEMATOCRIT 45.8 % (36.0-47.0); HEMOGLOBIN 14.5 g/dL (12.0-15.5); LYMPHOCYTES % (AUTO) 27.8 % (13-45); MEAN CORPUSCULAR HEMOGLOBIN 28.7 pg (27.0-33.4); MEAN CORPUSCULAR HGB CONC 31.7 g/dL (32.0-36.0); MEAN CORPUSCULAR VOLUME 91 fl (80-97); MONOCYTES % (AUTO) 5.9 % (3-13); PLATELET COUNT 180 10^3/uL (150-450); RED BLOOD COUNT 5.07 10^6/uL (3.72-5.28); RED CELL DISTRIBUTION WIDTH 15.2 % (11.5-14.0); SEGMENTED NEUTROPHILS % (AUTO) 64.4 % (42-78); TOTAL CELLS COUNTED % (AUTO) 100 %; WHITE BLOOD COUNT 8.5 10^3/uL (4.0-10.5)
[2019-01-14] MEDS: PANTOPRAZOLE SODIUM 40 MG TABLET.DR PO SCH (05:08)
[2019-01-14 05:09] LABS: ALBUMIN 3.3 g/dL (3.5-5.0); ALKALINE PHOSPHATASE 74 U/L (38-126); ANION GAP 7 (5-19); ASPARTATE AMINO TRANSFERASE 35 U/L (14-36); BILIRUBIN,DIRECT 0.1 mg/dL (0.0-0.4); BILIRUBIN,TOTAL 0.6 mg/dL (0.2-1.3); BLOOD UREA NITROGEN 28 mg/dL (7-20); CALCIUM 8.7 mg/dL (8.4-10.2); CARBON DIOXIDE 28 mmol/L (22-30); CHLORIDE 105 mmol/L (98-107); GLUCOSE 189 mg/dL (75-110); POTASSIUM 4.2 mmol/L (3.6-5.0); TOTAL PROTEIN 6.1 g/dL (6.3-8.2)
[2019-01-14] MEDS: LEVALBUTEROL HCL NEB 0.63 MG/3 ML AMPUL NEB PRN (08:44)
[2019-01-14] MEDS: INSULIN REG, HUMAN 100 UNIT/ML 3 ML VIAL (PYX) SUBCUT SCH ×2 (09:54→12:18)
[2019-01-14] MEDS: ASPIRIN 325 MG TABLET, ENT COATED PO SCH (09:58)
[2019-01-14] MEDS: POTASSIUM CHLORIDE 10 MEQ CAPSULE.ER PO SCH (09:58)
[2019-01-14] MEDS: ATORVASTATIN CALCIUM 80 MG TABLET PO SCH (09:58)
[2019-01-14] MEDS: TORSEMIDE 20 MG TABLET PO SCH (09:58)
[2019-01-14] MEDS: ENOXAPARIN SODIUM INJ 40 MG/0.4 ML DISP.SYRIN SUBCUT SCH (09:59)
[2019-01-14 12:16] VITALS: BP 128/100
--- NOTE | 2019-01-14 12:49 | PDOC DISCHARGE SUMMARY ---
Impression - Admit/DC Date/PCP Admission Date/Primary Care Provider: 01/10/19 18:21 SHAD CASTELLON MD Discharge Date: 01/14/19 - Discharge Diagnosis (1) Shortness of breath Is this a current diagnosis for this admission?: Yes (2) Type 2 diabetes mellitus Is this a current diagnosis for this admission?: Yes (3) Morbid obesity with BMI of 40.0-44.9, adult Is this a current diagnosis for this admission?: No (4) Pneumonia Is this a current diagnosis for this admission?: Yes - Assessment Summary: 1.shortness of breath Patient came in with acute on chronic shortness of breath chest x-ray suggestive of possible pneumonia. Patient also history of congestive heart failure. Plan to put her in IMCU she is a full code. Admitting as inpatient. Blood cultures and urine cultures are requested CT of the chest was requested to get further information about pneumonia and and to rule out pulmonary embolism. At this moment patient is refusing the CT of the chest. GI prophylaxis DVT prophylaxis initiated. Started on insulin sliding scale aCHS. Dietary consult will be requested. Plan to restart her home medications. To give Lasix 40 mg IV 1 dose. PRN BiPAP. Placed on oxygen 2 L nasal cannula. To give Xopenex nebulizations. shortness of breath may be secondary to pneumonia. 01/11/2019-shortness of breath is resolving. CT of the chest is negative for acute pathology. Pulse ox 95% 4 L. 01/12/2019-patient still continued to have shortness of breath. We are going to check with home oxygen needs. 01/13/2019-patient is still shortness of breath. On oxygen via nasal cannula. CT of the chest was negative for acute pathology. Waiting for approval from [facility] for home oxygen needs. 01/14/2019-patient still having shortness of breath. Going home on oxygen via nasal cannula. [facility] is delivering the supplies to her house today. 2.hypertension Patient might have hypertensive urgency blood pressure is 134/111. Patient states she has borderline hypertension. Plan to start her on hydralazine 20 mg IV every 6 PRN for systolic blood pressure more than 160. To give Lasix 40 mg IV 1 dose and restart on torsemide 20 mg p.o. daily. To check the blood pressures every shift. 01/11/2019-patient blood pressure today is 125/97. Hypertensive urgency is resolved. 01/2019-patient blood pressure today is 97/66 to hold the lisinopril. 01/13/2019-patient is hypotensive this morning systolic blood pressure in the 90s. To check the blood pressure manually and if the blood pressure is more than systolic blood pressure more than 100 to give IV Lasix 1 dose and continue torsemide. She gained 2 pounds since yesterday. 01/14/2019-patient blood pressure today is 121/77. Stable. Patient is advised to continue her torsemide upon discharge. 3.type 2 diabetes mellitus It is giving the history of type 2 diabetes mellitus but she is not on any medications at home. To check hemoglobin A1c in the morning and check blood sugars before meals and at bedtime. Dietary consult will be requested. 01/11/2019-type 2 diabetes mellitus patient latest blood sugar is 236, hemoglobin A1c 7.9. Patient is a diabetic. Dietary consult will be requested. 01/12/2019-patient's latest blood sugar is 133. On insulin sliding scale before meals and at bedtime. Patient may need to be discharged on p.o. medications for better management of the blood sugars. 01/13/2019-patient blood sugar today is 93. Hemoglobin A1c 7.9. Plan is to continue insulin sliding scale before meals and at bedtime. 01/14/2019-blood sugar today is 189 again diet exercise weight loss lifestyle modifications discussed patient hemoglobin A1c 7.9 and advised to continue her metformin upon discharge. 4.pneumonia Chest x-ray suggestive of possible right lower lobe pneumonia. Blood cultures are requested started on IV antibiotic therapy. CT of the chest was requested for further information. Patient might have most likely community-acquired pneumonia gram-positive organisms may be responsible. 01/11/2019-initial chest x-ray suggestive of right lower lobe pneumonia CTA of the chest ruled out pneumonia. 01/14/2019-initial chest x-ray suggestive of pneumonia but CT scan negative for acute pathology presently she is not on antibiotics she is going home without any antibiotics. 5.morbid obesity BMI is more than 41, diet exercise weight loss lifestyle modifications are discussed with the patient. Dietary consult will be requested. 6.cardiomyopathy Is given the history of cardiomyopathy chest x-ray shows cardiomegaly she is taking torsemide at home. BNP is elevated more than 7000. Torsemide is was reinitiated to give Lasix 40 mg IV 1 dose. To watch for the fluid overload. My opinion patient might have a chronic systolic heart failure. 01/11/2019-patient came in with bilateral lower leg edema, elevated BNP and cardiomegaly. Patient given the history of cardiomyopathy. On torsemide 20 mg p.o. daily. 1 dose of IV Lasix was given yesterday. To watch for the fluid overload. 01/12/2019-BNP went up to 9500 patient is receiving torsemide. Placed on fluid restriction 1200 cc/day. Low-salt diet was advised. Because of the low blood pressures unable to give IV Lasix at this time. 02/2019-patient still have pedal edema. Gained 2 pounds since yesterday. Try to give Lasix 40 mg IV 1 dose but the blood pressures are running low today. 01/14/2019-pedal edema significantly increased improved and he still have the shortness of breath chest x-ray is negative for fluid overload patient received PRN IV Lasix and torsemide to the hospital stay. Plan to give 80 mg of p.o. Lasix today prior to discharge. 1.hyponatremia Serum sodium today is 133. Hyponatremia secondary to diuretic therapy. 01/14/2019-serum sodium level today is 140 and hyponatremia due to diuretics resolved. - Additional Information Resuscitation Status: Full Code Discharge Diet: Diabetic Referrals: SHAD CASTELLON MD [Primary Care Provider] - Follow up as needed Prescriptions: Torsemide [Demadex 20 mg Tablet] 20 mg PO DAILY #30 tablet Metformin HCl [Glucophage 500 mg Tablet] 1,000 mg PO BID #60 Potassium Chloride [Klor-Con 10 Meq Capsule ER] 20 meq PO DAILY #30 Aspirin [Lo-Dose Aspirin EC] 81 mg PO DAILY #30 Pravastatin Sodium [Pravachol] 80 mg PO DAILY #30 Lisinopril [Prinivil 40 mg Tablet] 40 mg PO DAILY #30 Albuterol Sulfate [Proair HFA Inhalation Aerosol 8.5 gm MDI] 2 puff IH BID #2 vial Metoprolol Succinate [Toprol Xl 25 mg Tab.sr] 25 mg PO Q12 #30 Home Medications: Albuterol Sulfate [Proair HFA Inhalation Aerosol 8.5 gm MDI] 2 puff IH BID #2 vial 01/14/19 Aspirin [Lo-Dose Aspirin EC] 81 mg PO DAILY #30 01/14/19 Lisinopril [Prinivil 40 mg Tablet] 40 mg PO DAILY #30 01/14/19 Metformin HCl [Glucophage 500 mg Tablet] 1,000 mg PO BID #60 01/14/19 Metoprolol Succinate [Toprol Xl 25 mg Tab.sr] 25 mg PO Q12 #30 01/14/19 Potassium Chloride [Klor-Con 10 Meq Capsule ER] 20 meq PO DAILY #30 01/14/19 Pravastatin Sodium [Pravachol] 80 mg PO DAILY #30 01/14/19 Torsemide [Demadex 20 mg Tablet] 20 mg PO DAILY #30 tablet 01/14/19 History of Present Illiness History of Present Illness: ILSA RUFF is a 63 year old female with history of type 2 diabetes mellitus, cardiomyopathy, hypertension came to the emergency room with complaints of increasing shortness of breath. Shortness of breath is not associated with chest pain not associated with cough not associated cold. Denies any nausea vomiting diarrhea or abdominal pain. Patient says she is fasting for the last 4 to 5 days for unknown reasons. Patient states she is compliant with her medications. She was also telling me she flew in from [place] 2 days ago. Agreed to stay in the hospital for further management. Hospital Course Hospital Course: 63 year old female with history of type 2 diabetes mellitus, cardiomyopathy, hypertension came to the emergency room with complaints of increasing shortness of breath. Shortness of breath is not associated with chest pain not associated with cough not associated cold. Denies any nausea vomiting diarrhea or abdominal pain. Patient says she is fasting for the last 4 to 5 days for unknown reasons. Patient states she is compliant with her medications. She was also telling me she flew in from [place] 2 days ago. Agreed to stay in the hospital for further management. 01/[id number]-old female admitted for shortness of breath. Chest x-ray suggestive of possible pneumonia. CT of the chest was done PE is ruled out. No fluid overload is noticed on CT. Patient's pulse ox is this morning 95% on 4 L. Comfortably sleeping in the bed. No acute events in the last 24 hours. 01/12/2019-no acute events in the last 24 hours. Patient is afebrile. Blood pressure is running low and lisinopril was discontinued. Able to do the stress test today because patient unable to lie flat. Plan to check for home oxygen needs if he meets the criteria she will go home on portable oxygen. 01/13/2019-no acute events in the last 24 hours. Afebrile. Blood pressure this morning is 97/70. Presently on torsemide 20 mg p.o. daily. She gained 2 pounds since yesterday. Try to give her Lasix 40 mg IV 1 dose. pt waiting for July from [facility] to go home with home oxygen. No acute events in the last 24 hours. Afebrile. 01/14/2019-no acute events in the last 24 hours. Afebrile. Patient scheduled for stress test tomorrow but she is refusing to stay post to go home and follow- up with the [facility]. No complaints of chest pains during the hospital stay. [facility] is going to deliver oxygen supplies to her home today. Physical Exam Vital Signs: Temp Pulse Resp BP Pulse Ox 97.4 F 88 22 H 128/100 H 97 01/14/19 11:50 01/14/19 11:50 01/14/19 11:50 01/14/19 12:00 01/14/19 11:50 Intake & Output 01/13/19 01/14/19 01/15/19 06:59 06:59 06:59 Intake Total 840 760 Balance 840 760 Weight 101.3 kg 101.3 kg General appearance: PRESENT: mild distress, morbidly obese Head exam: PRESENT: atraumatic Eye exam: PRESENT: PERRLA Mouth exam: PRESENT: moist, tongue midline Teeth exam: PRESENT: poor dentation Neck exam: ABSENT: carotid bruit, JVD, lymphadenopathy, thyromegaly Respiratory exam: PRESENT: decreased breath sounds Cardiovascular exam: PRESENT: RRR. ABSENT: diastolic murmur, rubs, systolic murmur GI/Abdominal exam: PRESENT: normal bowel sounds, soft. ABSENT: distended, guarding, mass, organolmegaly, rebound, tenderness Rectal exam: PRESENT: deferred Extremities exam: PRESENT: full ROM. ABSENT: calf tenderness, clubbing, pedal edema Neurological exam: PRESENT: alert, awake, oriented to person, oriented to place, oriented to time, oriented to situation, CN II-XII grossly intact. ABSENT: motor sensory deficit Psychiatric exam: PRESENT: appropriate affect, normal mood. ABSENT: homicidal ideation, suicidal ideation Skin exam: PRESENT: dry, intact, warm. ABSENT: cyanosis, rash Results Laboratory Results: WBC 8.5 10^3/uL (4.0-10.5) 01/14/19 04:20 RBC 5.07 10^6/uL (3.72-5.28) 01/14/19 04:20 Hgb 14.5 g/dL (12.0-15.5) 01/14/19 04:20 Hct 45.8 % (36.0-47.0) 01/14/19 04:20 MCV 91 fl (80-97) 01/14/19 04:20 MCH 28.7 pg (27.0-33.4) 01/14/19 04:20 MCHC 31.7 g/dL (32.0-36.0) L 01/14/19 04:20 RDW 15.2 % (11.5-14.0) H 01/14/19 04:20 Plt Count 180 10^3/uL (150-450) 01/14/19 04:20 Lymph % (Auto) 27.8 % (13-45) 01/14/19 04:20 [place] % (Auto) 5.9 % (3-13) 01/14/19 04:20 Eos % (Auto) 1.4 % (0-6) 01/14/19 04:20 Baso % (Auto) 0.5 % (0-2) 01/14/19 04:20 Absolute Neuts (auto) 5.5 10^3/uL (1.7-8.2) 01/14/19 04:20 Absolute Lymphs (auto) 2.4 10^3/uL (0.5-4.7) 01/14/19 04:20 Absolute Monos (auto) 0.5 10^3/uL (0.1-1.4) 01/14/19 04:20 Absolute Eos (auto) 0.1 10^3/uL (0.0-0.6) 01/14/19 04:20 Absolute Basos (auto) 0.0 10^3/uL (0.0-0.2) 01/14/19 04:20 Seg Neutrophils % 64.4 % (42-78) 01/14/19 04:20 PT 15.8 SEC (11.4-15.4) H 01/11/19 10:40 INR 1.25 01/11/19 10:40 Sodium 140.1 mmol/L (137-145) 01/14/19 04:20 Potassium 4.2 mmol/L (3.6-5.0) 01/14/19 04:20 Chloride 105 mmol/L (98-107) 01/14/19 04:20 Carbon Dioxide 28 mmol/L (22-30) 01/14/19 04:20 Anion Gap 7 (5-19) 01/14/19 04:20 BUN 28 mg/dL (7-20) H 01/14/19 04:20 Creatinine 0.80 mg/dL (0.52-1.25) 01/14/19 04:20 Est GFR ( Amer) > 60 (>60) 01/14/19 04:20 Est GFR (Non-Af Amer) Cancelled 01/10/19 14:03 Est GFR (MDRD) Non-Af > 60 (>60) 01/14/19 04:20 Glucose 189 mg/dL (75-110) H 01/14/19 04:20 POC Glucose 137 mg/dL (70-110) H 01/14/19 11:48 Hemoglobin A1c % 7.9 % (4.7-6.0) H 01/11/19 10:40 Calcium 8.7 mg/dL (8.4-10.2) 01/14/19 04:20 Magnesium 1.7 mg/dL (1.6-2.3) 01/14/19 04:20 Total Bilirubin 0.6 mg/dL (0.2-1.3) 01/14/19 04:20 Direct Bilirubin 0.1 mg/dL (0.0-0.4) 01/14/19 04:20 Neonat Total Bilirubin Not Reportable 01/14/19 04:20 Neonat Direct Bilirubin Not Reportable 01/14/19 04:20 Neonat Indirect Bili Not Reportable 01/14/19 04:20 AST 35 U/L (14-36) 01/14/19 04:20 ALT 29 U/L (<35) 01/14/19 04:20 Alkaline Phosphatase 74 U/L (38-126) 01/14/19 04:20 Creatine Kinase 285 U/L (30-135) H 01/11/19 10:40 CK-MB (CK-2) 2.60 ng/mL (<4.55) 01/11/19 10:40 Troponin I 0.092 ng/mL 01/14/19 10:51 NT-Pro-B Natriuret Pep 9520 pg/mL (5-900) H 01/11/19 10:40 Total Protein 6.1 g/dL (6.3-8.2) L 01/14/19 04:20 Albumin 3.3 g/dL (3.5-5.0) L 01/14/19 04:20 Triglycerides 64 mg/dL (<150) 01/11/19 10:40 Cholesterol 112.97 mg/dL (0-200) 01/11/19 10:40 LDL Cholesterol Direct 98 mg/dL (<100) 01/11/19 10:40 VLDL Cholesterol 13.0 mg/dL (10-31) 01/11/19 10:40 HDL Cholesterol 20 mg/dL (>40) L 01/11/19 10:40 EGFR Cancelled 01/10/19 14:03 TSH 0.24 uIU/mL (0.47-4.68) L 01/11/19 10:40 Urine Color YELLOW 01/10/19 20:20 Urine Appearance SLIGHTLY-CLOUDY 01/10/19 20:20 Urine pH 6.0 (5.0-9.0) 01/10/19 20:20 Ur Specific [place] 1.009 01/10/19 20:20 Urine Protein 100 mg/dL (NEGATIVE) H 01/10/19 20:20 Urine Glucose (UA) NEGATIVE mg/dL (NEGATIVE) 01/10/19 20:20 Urine Ketones NEGATIVE mg/dL (NEGATIVE) 01/10/19 20:20 Urine Blood NEGATIVE (NEGATIVE) 01/10/19 20:20 Urine Nitrite NEGATIVE (NEGATIVE) 01/10/19 20:20 Urine Bilirubin NEGATIVE (NEGATIVE) 01/10/19 20:20 Urine Urobilinogen NEGATIVE mg/dL (<2.0) 01/10/19 20:20 Ur Leukocyte Esterase NEGATIVE (NEGATIVE) 01/10/19 20:20 Urine WBC (Auto) 1 /HPF 01/10/19 20:20 Urine RBC (Auto) 0 /HPF 01/10/19 20:20 U Hyaline Cast (Auto) 8 /LPF 01/10/19 20:20 Urine Bacteria (Auto) 2+ /HPF 01/10/19 20:20 Squamous Epi Cells Auto 4 /HPF 01/10/19 20:20 Urine Mucus (Auto) OCC /LPF 01/10/19 20:20 Urine Ascorbic Acid NEGATIVE (NEGATIVE) 01/10/19 20:20 01/10/19 01/10/19 01/10/19 14:00 15:23 19:20 CK-MB (CK-2) Cancelled 1.53 2.99 Troponin I Cancelled < 0.012 NT-Pro-B Natriuret Pep Cancelled 7670 H 01/11/19 01/11/19 01/13/19 01:12 10:40 14:30 CK-MB (CK-2) 2.48 2.60 Troponin I 0.043 NT-Pro-B Natriuret Pep 9520 H 01/14/19 01/14/19 04:20 10:51 CK-MB (CK-2) Troponin I 0.132 0.092 NT-Pro-B Natriuret Pep Impressions: Chest/Abdomen CTA 01/10/19 00:00 IMPRESSION: No central pulmonary embolism. Chest X-Ray 01/10/19 13:50 IMPRESSION: 1. Asymmetric alveolar opacities in the right base. Correlate with clinical findings to exclude a right lower lobe pneumonia. 2. Cardiomegaly. Plan Plan of Treatment: Patient advised to be compliant with her medications advised to continue to use oxygen via nasal cannula and continuous basis. Patient is also advised to follow-up with primary care physician to arrange for sleep studies. Time Spent: Greater than 30 Minutes Stroke Is this a Stroke Patient?: No Acute Heart Failure - Is this a Heart Failure Patient?: No
[2019-01-14] MEDS ORDERED: FUROSEMIDE 80 MG TABLET PO ONE (13:00)
== END 2019-01-14 15:02 | disposition home health service (06) ==
LOC: ER 13:45 → INTOOBSV 18:21 → EH 18:21 → 3S 21:00
PROVIDERS: ADMIT Internal Medicine; ATTEND Internal Medicine
DX: R06.02 Shortness of breath (principal); J18.9 Pneumonia, unspecified organism; E11.9 Type 2 diabetes mellitus without complications; E66.01 Morbid (severe) obesity due to excess calories; Z68.41 Body mass index [BMI] 40.0-44.9, adult; I16.0 Hypertensive urgency; I11.0 Hypertensive heart disease with heart failure; I50.9 Heart failure, unspecified; I42.9 Cardiomyopathy, unspecified; E87.1 Hypo-osmolality and hyponatremia; T50.2X5A Adverse effect of carbonic-anhydrase inhibitors, benzothiadiazides and other diuretics, initial encounter; I95.9 Hypotension, unspecified; F17.200 Nicotine dependence, unspecified, uncomplicated; R53.1 Weakness; E87.6 Hypokalemia; E83.51 Hypocalcemia; I44.7 Left bundle-branch block, unspecified; I49.3 Ventricular premature depolarization; E87.2 Acidosis; Z91.14 Patient's other noncompliance with medication regimen; Z79.899 Other long term (current) drug therapy
CPT/HCPCS: 93005; 99285; 36415 ×5; 87040; 87086; 82553 ×2; 82962 ×5; 82550 ×2; 83735 ×4; 84443; 85025 ×4; 85610 ×2; 87070; 80053 ×4; 81001; 84484 ×3; 83036; 80061; 83880 ×2; 71045; 71275; 93010; 94660; 94640 ×4; G0378 ×6; J1940 ×2; J3490 ×8; J1650 ×4; J3475; J1815 ×3; J7060 ×2; J0456 ×2; J7614 ×3; J7620; J0696